=== PATIENT | female | born 1965 | race Caucasian/White ===

== ENCOUNTER 2018-03-20 09:36 | Day surgery (SDC) | payer MEDICARE, MEDICAID ==
[2018-03-16 10:59] LABS: HEMATOCRIT 29.1 % (36.0-47.0); HEMOGLOBIN 10.1 g/dL (12.0-15.5); MEAN CORPUSCULAR HGB CONC 34.7 g/dL (32.0-36.0); MEAN CORPUSCULAR VOLUME 92 fl (80-97); PLATELET COUNT 220 10^3/uL (150-450); RED BLOOD COUNT 3.16 10^6/uL (3.72-5.28); WHITE BLOOD COUNT 5.8 10^3/uL (4.0-10.5)
[2018-03-16 11:00] LABS: INTERNATIONAL RATION (INR) 1.03; PARTIAL THROMBOPLASTIN TIME 32.9 SEC (23.5-35.8)
[2018-03-16 11:08] LABS: APPEARANCE,URINE SLIGHTLY-CLOUDY; BILIRUBIN,URINE NEGATIVE (NEGATIVE); COLOR,URINE YELLOW; GLUCOSE, URINE NEGATIVE (NEGATIVE); KETONES,URINE NEGATIVE (NEGATIVE); LEUKOCYTE ESTERASE,URINE LARGE (NEGATIVE); NITRITE,URINE NEGATIVE (NEGATIVE); PROTEIN,URINE NEGATIVE (NEGATIVE); URINE SPECIFIC GRAVITY 1.015; UROBILINOGEN,URINE NEGATIVE mg/dL (<2.0)
--- NOTE | 2018-03-16 11:53 | RADIOLOGY REPORT (SQ) ---
EXAM DESCRIPTION: CHEST PA/LATERAL COMPLETED DATE/TIME: 03/16/2018 11:44 am REASON FOR STUDY: PRE-OP COMPARISON: None. EXAM PARAMETERS: NUMBER OF VIEWS: two views TECHNIQUE: Digital Frontal and Lateral radiographic views of the chest acquired. RADIATION DOSE: NA LIMITATIONS: none FINDINGS: LUNGS AND PLEURA: No opacities, masses or pneumothorax. No pleural effusion. MEDIASTINUM AND HILAR STRUCTURES: Moderate size retrocardiac hiatal hernia with air-fluid level. HEART AND VASCULAR STRUCTURES: Heart normal size. No evidence for failure. BONES: Osteopenic HARDWARE: Dorsal column stimulator electrodes over the midthoracic spine. Clips right upper quadrant post cholecystectomy OTHER: No other significant finding. IMPRESSION: Retrocardiac hiatal hernia. No acute infiltrates. TECHNICAL DOCUMENTATION: JOB ID: [id number] [employer]- All Rights Reserved Reading location - IP/workstation name: [email or web address]
--- NOTE | 2018-03-16 22:37 | EKG REPORT ---
SEVERITY:- ABNORMAL ECG - SINUS RHYTHM : Confirmed by: Enma Clayton MD 16-Mar-2018 22:37:07
[~2018-03-20 09:36] MED LIST: CEFAZOLIN 1 GM/D5W RTU 1 GM/50 ML RTUPB IV PRN; RINGERS SOLUTION,LACTATED 1,000 ML IV PRN
[2018-03-20] MEDS ORDERED: BUPIVACAINE HCL 0.25% /EPINEPHRINE INJ/PF 30 ML SDV ONE (11:20)
[2018-03-20] MEDS ORDERED: SODIUM BICARBONATE 8.4% INJ 50 MEQ/50 ML DISP.SYRIN ONE (11:20)
[2018-03-20] MEDS ORDERED: LIDOCAINE 1% INJ-PF (10 MG/ML) 30 ML SDV ONE (11:20)
[2018-03-20] MEDS ORDERED: FENTANYL CITRATE INJ/PF 100 MCG/2 ML AMPUL ONE (13:13)
[2018-03-20] MEDS ORDERED: PROPOFOL INJ 200 MG/20 ML VIAL IV ONE ×2 (13:14→13:25)
[2018-03-20] MEDS ORDERED: MIDAZOLAM 2 MG/2 ML INJ ONE ×2 (13:14→13:25)
[2018-03-20] MEDS ORDERED: ONDANSETRON HCL INJ/PF 4 MG/2 ML SDV ONE (13:25)
[2018-03-20] MEDS ORDERED: DIPHENHYDRAMINE HCL 50 MG/ML VIAL IV PRN (13:47)
[2018-03-20] MEDS ORDERED: ONDANSETRON HCL INJ/PF 4 MG/2 ML SDV IV PRN ×2 (13:47→14:56)
[2018-03-20] MEDS ORDERED: PROMETHAZINE HCL INJ 25 MG/1 ML VIAL IV PRN ×2 (13:47)
[2018-03-20] MEDS ORDERED: MEPERIDINE HCL/PF INJ 25 MG/1 ML DISP.SYRIN IV PRN (13:47)
[2018-03-20] MEDS ORDERED: MORPHINE SULFATE 10 MG/ML INJ IV PRN (13:47)
[2018-03-20] MEDS ORDERED: FENTANYL CITRATE INJ/PF 100 MCG/2 ML AMPUL IV PRN ×3 (13:47)
[2018-03-20] MEDS ORDERED: CEFAZOLIN 1 GM/D5W RTU 1 GM/50 ML RTUPB IV ONE (13:49)
[2018-03-20] MEDS ORDERED: CEFAZOLIN INJ 1 GM VIAL ONE (14:28)
[2018-03-20] MEDS ORDERED: OXYCODONE-ACETAMINOPHEN 5-325 MG TABLET PO PRN (14:55)
[2018-03-20 16:53] VITALS: BP 84/51
--- NOTE | 2018-03-20 20:31 | OPERATIVE REPORT E ---
Operative Report NAME: MARIZOL LAUREANO : 1965 AGE: 53Y DATE OF SURGERY: 03/20/2018 ROOM: PREOPERATIVE DIAGNOSIS: END OF LIFE OF IMPLANTABLE PULSE GENERATOR FOR SPINAL CORD STIMULATION SYSTEM. POSTOPERATIVE DIAGNOSIS: END OF LIFE OF IMPLANTABLE PULSE GENERATOR FOR SPINAL CORD STIMULATION SYSTEM. OPERATION: Revision spinal cord stimulator implantable pulse generator. SURGEON: FOREIGN PAINTER M.D. ANESTHESIA: Local with sedation. ESTIMATED BLOOD LOSS: 5 mL INTRAVENOUS FLUIDS: 900 mL of crystalloid solution. PREOPERATIVE ANTIBIOTICS: One gram of Ancef given prior to incision. COMPLICATIONS: None. INDICATIONS: The patient is a 53-year-old female who had a spinal cord stimulator system implanted in 2011. Of late, she has lost the ability to have stimulation, despite no migration noted of her leads. Her battery was found to be . We agreed to proceed with battery replacement. Risks and benefits were described in detail, including but not limited to bleeding, bruising, infection, injury to nerves, arteries, veins, need for potential lead revision, should the leads have any trauma intraoperatively, paralysis and potentially . The patient expressed understanding and agreed to proceed. PROCEDURE: Patient was accompanied to the operative suite by Anesthesia. She was placed in prone position. All pressure points were protected and padded. Standard ASA lines and monitors were applied. The patient was prepped and draped in sterile fashion using chlorhexidine gluconate solution and Ioban drapes. The previous battery pocket incision site was marked. A timeout protocol was performed, as per *------* standards. One gram of Ancef was given prior to incision. A 15-blade scalpel was utilized to make an incision over the previous buttock pocket and expose the implantable pulse generator after skin anesthesia with 1% buffered lidocaine. The battery was easily removed from the pocket. The leads were removed from the implantable pulse generator and inserted into a new implantable pulse generator. Impedance was rechecked and noted to be excellent. A hex wrench was utilized to secure each lead. The pocket was expanded slightly, due to the large size of the Precision Montage battery that was placed. The pocket was copiously irrigated with dilute Betadine solution. The implantable pulse generator and leads were then returned to the pocket. Closure ensued with 3-0 Vicryl suture in interrupted vertical mattress fashion. Skin was then closed with Dermabond, tape and glue. The patient tolerated the procedure extremely well and was accompanied to PACU in good condition. She will be discharged home and will follow up with *------* pain management in 24 hours. DICTATING PHYSICIAN: FOREIGN PAINTER M.D. [id number] PHY#: [id number] ID: [id number] JOB#: [id number] ACCT: [id number] cc:FOREIGN PAINTER M.D. >
== END 2018-03-20 16:20 | disposition home or self-care (01) ==
LOC: OROUT 09:36
PROVIDERS: ATTEND Pain Medicine Interventional Pain Medicine
DX: G89.4 Chronic pain syndrome (principal); M96.1 Postlaminectomy syndrome, not elsewhere classified; M54.17 Radiculopathy, lumbosacral region; M51.87 Other intervertebral disc disorders, lumbosacral region; G90.09 Other idiopathic peripheral autonomic neuropathy; M25.552 Pain in left hip; M25.551 Pain in right hip; I10 Essential (primary) hypertension; E66.9 Obesity, unspecified; J45.909 Unspecified asthma, uncomplicated; M19.90 Unspecified osteoarthritis, unspecified site; G43.909 Migraine, unspecified, not intractable, without status migrainosus; Z79.891 Long term (current) use of opiate analgesic; Z79.899 Other long term (current) drug therapy; Z68.31 Body mass index [BMI] 31.0-31.9, adult; Z79.51 Long term (current) use of inhaled steroids; Z88.5 Allergy status to narcotic agent
CPT/HCPCS: 93005; 36415; 85027; 85610; 85730; 81001; 71046; 93010; 63685; C1820; J2250; J3490 ×3; J0690 ×2; J2405; J2704; 300; J3010